=== PATIENT | male | born 1995 | race Hispanic/Latino ===

== ENCOUNTER 2017-05-07 23:20 | Observation (INO) | payer OTHER ==
[~2017-05-07 23:20] MED LIST: ISOVUE-370 76%-LOCM 1 ML ONE
[2017-05-07 23:51] LABS: #Basophils 0.1 thou/uL (0.0-0.2); #Eosinphils 0.1 thou/uL (0.0-0.7); #Lymphocytes 4.1 thou/uL (1.20-3.40); #Monocytes 1.1 thou/uL (0.11-0.59); #Neutrophils 12.8 thou/uL (1.40-6.50); %Basophils 0.3 % (0.0-1.0); %Eosinophils 0.5 % (0.0-10.0); %Lymphocytes 22.5 % (21.0-51.0); %Monocytes 6.2 % (0.0-10.0); Hematocrit 47.7 % (42.0-52.0); Mean Platelet Volume 7.2 fL (7.4-10.4); White Blood Cell (WBC) Count 18.2 thou/uL (4.8-10.8)
[2017-05-07] MEDS ORDERED: Ondansetron HCl/PF 4 MG/2 ML Vial ONE (23:57)
[2017-05-07] MEDS ORDERED: Morphine 4 MG/ML VIAL ONE (23:57)
[2017-05-08 00:09] LABS: ALT (SGPT) 66 U/L (8-55); AST (SGOT) 35 U/L (5-34); Alkaline Phosphatase 84 U/L (40-150); Anion Gap 13 mmol/L (10-20); BUN (Urea Nitrogen) 14 mg/dL (8.9-20.6); Calc. Creatinine Clearance 0 mL/min (70-130); Calcium 9.9 mg/dL (7.8-10.44); Carbon Dioxide 28 mmol/L (22-29); Chloride 101 mmol/L (98-107); Estimated GFR-MDRD Greater than 90; Globulin 3.5 g/dL (2.4-3.5); Lipase 13 U/L (8-78); Protein, Total 8.1 g/dL (6.0-8.3)
[2017-05-08] MEDS ORDERED: MEROPENEM 1 GM/50 ML 1 GM in Premix Bag 1 BAG IVPB SCH (00:30)
[2017-05-08] MEDS ORDERED: Morphine 4 MG/ML VIAL ONE (00:31)
[2017-05-08 00:38] LABS: Bilirubin Negative (Negative); Blood, Urine Negative (Negative); Glucose, Urine (Dipstick) Negative (Negative); Ketone, Urine Negative (Negative); Nitrite Negative (Negative); Protein, Urine (Dipstick) Negative (Neg-Trace); Urobilinogen 0.2 mg/dL (0.2-1.0)
[2017-05-08] MEDS ORDERED: Ondansetron ODT 4 MG TAB SL PRN (02:25)
[2017-05-08] MEDS ORDERED: Ondansetron HCl/PF 4 MG/2 ML Vial IVP PRN (02:25)
[2017-05-08] MEDS ORDERED: Acetaminophen 325 MG TAB PO PRN (02:25)
[2017-05-08] MEDS ORDERED: Morphine PF 1 MG/ML SYR IVP PRN (02:26)
[2017-05-08] MEDS ORDERED: Morphine 10 MG/ML CARPUJECT SLOW IVP PRN (02:27)
[2017-05-08] MEDS: Sodium Chloride 0.9% 1,000 ML IV SCH ×2 (03:30→06:29)
--- NOTE | 2017-05-08 06:52 | CT ---
ABDOMEN CT WITH CONTRAST PELVIC CT WITH CONTRAST: Date: 05/07/17 HISTORY: Right lower quadrant pain. Nausea. Evaluate for appendicitis. COMPARISON: None. TECHNIQUE: An abdomen and pelvic CT are performed with IV contrast. Coronal reformatted images are submitted for interpretation. FINDINGS: ABDOMEN CT: Lung bases are clear. Heart size is normal. No significant pericardial fluid. Descending thoracic aor ta and abdominal aorta have a normal caliber. No periaortic fat stranding. Intra and extrahepatic portal vein is patent. Unremarkable gallbladder. The liver, spleen, pancreas, and adrenal glands have appropriate enhancement. No gastrohepatic, retrocrural, or periportal lymphadenopathy. There are mildly enlarged right lower quadrant lymph nodes. [employer] enlarged lymph node measur es 13.0 mm in maximum dimension. No mesenteric mass, free air, or significant free fluid. Trace amount of fluid in the right paracolic gutter. Symmetric enhancement of the kidneys. Bilaterally, no obstructive uropathy. Limited evaluation of the alimentary canal due to lack of oral contrast. No evidence of bowel obstruc tion. Ileocecal junction is normal. Fecal material in a nondistended, nondilated colon. There is evid ence of diverticulosis, without evidence of diverticulitis. Emanating from the cecal apex is a blind- ending tubular structure with evidence of adjacent mesenteric fat stranding. Punctate hyperdensities compatible with appendicoliths are noted. This tubular structure measures approximately 1.0 cm. No ev idence of abscess or perforation. PELVIC CT: No mass, lymphadenopathy, free air, or free fluid. Urinary bladder is unremarkable. There are no lytic or blastic lesions in the osseous structures. IMPRESSION: Appendicitis without evidence of abscess or perforation. Results of study discussed with Dr. Chandra on 05/07/17 at 2358 hours. CODE CR. POS: [facility]
[2017-05-08] MEDS ORDERED: FLU VACC QS2017-18 36 mo. & older 0.5 ML SYRINGE IM ONE (09:00)
[2017-05-08] MEDS ORDERED: Sodium Chloride 0.9% 1,000 ML IV SCH (09:30)
--- NOTE | 2017-05-08 09:38 | HP ---
HISTORY OF PRESENT ILLNESS: Esteban Barajas Jr. is a 22-year-old male from [place]. 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 He at 8:00 p. m. last night, approximately 13 hours ago began experiencing right lower quadrant pain. He has not s uffered anorexia or nausea or vomiting, but pain is worse with movement. He was seen in the emergenc y room. CAT scan verifies findings of appendicitis. ALLERGIES: None. TOBACCO: One pack per week. ALCOHOL: Socially. MEDICATIONS: None. PAST SURGICAL AND MEDICAL HISTORY: Noncontributory. REVIEW OF SYSTEMS: Noncontributory. SOCIAL HISTORY: Patient is single, lives in [place]. PHYSICAL EXAMINATION: VITAL SIGNS: Temperature 98 degrees, 91, 128/59. HEENT: Unremarkable. LUNGS: Clear to auscultation. CARDIAC: Regular rate and rhythm without murmur or gallop. ABDOMEN: Soft, tenderness in his right lower quadrant with guarding and rebound. EXTREMITIES: Unremarkable. NEUROLOGIC: Intact. No lymphadenopathy. Weight 117 kilograms. He received meropenem many hours ago. He has IV fluids running. ASSESSMENT AND PLAN: Acute appendicitis. Recommend laparoscopic video appendectomy. Risk of infect ion, bleeding, visceral injury, open procedure, fistula etc. discussed. Questions answered. He cons ents. We will plan this today, probably as an outpatient and he can go home postoperatively today.
[2017-05-08] MEDS ORDERED: Midazolam HCl 2 mg/2 ml Vial ONE (11:56)
[2017-05-08] MEDS ORDERED: Piperacillin/Tazobactam 3.375 GM, Admixture Fee 1 EACH in Sodium Chloride 0.9% 100 ML IVPB SCH (12:00)
[2017-05-08] MEDS ORDERED: Ketorolac Tromethamine 30 MG/ML VIAL IVP SCH (12:00)
[2017-05-08] MEDS ORDERED: Acetaminophen 1,000 MG in Premix Bag 1 BAG IVPB SCH (12:00)
[2017-05-08] MEDS ORDERED: Fentanyl 100 MCG/2 ML VIAL ONE ×3 (13:05→14:59)
[2017-05-08] MEDS ORDERED: Bupivacaine/Epinephrine 0.25% 30 ML VIAL ONE (13:07)
[2017-05-08] MEDS ORDERED: Ibuprofen 600 MG TAB PO PRN (13:35)
[2017-05-08] MEDS ORDERED: Acetaminophen 500 MG TAB PO PRN (13:35)
[2017-05-08] MEDS ORDERED: traMADol HCl 50 MG TAB PO PRN ×2 (13:35)
--- NOTE | 2017-05-08 14:33 | OP ---
DATE OF PROCEDURE: 05/08/2017 PREOPERATIVE DIAGNOSIS: Acute appendicitis. POSTOPERATIVE DIAGNOSIS: Acute appendicitis. PROCEDURE: Laparoscopic video appendectomy. SURGEON: Dr. Eugenio Ramires. ANESTHESIA: General. Local 0.5% Marcaine with epinephrine, 30 mL, mixed with 2% Xylocaine, 10 mL DESCRIPTION OF PROCEDURE: Patient was taken to the operating room where under general anesthesia, Fo ayah placed at the beginning of the procedure and removed at the end. Abdomen was clipped of hair, pr epared with ChloraPrep, draped in routine fashion. Local anesthetic mixture infiltrated into skin an d subcutaneous tissue about each port site. Infraumbilical incision made and pneumoperitoneum to 15 mmHg obtained with the Veress needle, replacing it with a 5 port and laparoscope inserted. Suprapubi c incision made and a 12 port placed. Right lateral subcostal incision made and a 5 port placed. Me soappendix taken down with LigaSure. The stump of the appendix divided with cecal stump with the end ovascular YINA blue load stapler. Appendix removed through the 12 port and submitted to Pathology. G ood hemostasis ensured with clips and cautery and LigaSure. Irrigant and pneumoperitoneum evacuated after suprapubic fascia approximated with 0 Vicryl suture with GraNee needle. All skin incisions nadja roximated with interrupted subdermal 4-0 Monocryl and DermaGlue applied.
[2017-05-08] MEDS ORDERED: Promethazine HCl 25 MG/ML VIAL ONE (15:01)
[2017-05-08] MEDS ORDERED: Glycopyrrolate 0.2 MG/ML 5 ML SYRINGE ONE (16:17)
[2017-05-08] MEDS ORDERED: Propofol 200 MG/20 ML VIAL ONE (16:17)
[2017-05-08] MEDS ORDERED: Succinylcholine Chloride 20 MG/ML 10 ml SYRINGE FS ONE (16:17)
[2017-05-08] MEDS ORDERED: Lidocaine 1% PF 5 ML VIAL ONE (16:17)
[2017-05-08] MEDS ORDERED: Ondansetron HCl/PF 4 MG/2 ML Vial ONE (16:17)
--- NOTE | 2017-05-08 19:24 | DIS ---
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 CAT scan in the emergency room verified appendicit is consistent with physical exam and history. He received intravenous fluids and antibiotics overnig ht, was taken for laparoscopic video appendectomy, and postoperatively on the day of operation, disch arged home. He was instructed to take [id number] Tylenol 1000 mg p.o. 4 times a day p.r.n. liliana n and/or Motrin 600 mg p.o. 4 times a day p.r.n. pain, was given a prescription for Ultram 25 with on e refill. He is to follow up in my office in 1-2 weeks or sooner as needed. Diet and activity as to lerated. No restrictions.
[2017-05-08 20:35] VITALS: BP 114/56; TEMP 98.2
== END 2017-05-08 20:20 | disposition home or self-care (01) ==
LOC: ERS 23:20 → 3SE 05-08 00:24
PROVIDERS: ADMIT Specialist; ATTEND Specialist
PROC: 0DTJ4ZZ Resection of Appendix, Percutaneous Endoscopic Approach (ICD-10-PCS; principal; 2017-05-08)
DX: K35.80 Unspecified acute appendicitis (principal); F17.210 Nicotine dependence, cigarettes, uncomplicated
CPT/HCPCS: 36415; 74177; 80053; 81003; 83690; 85025; 86850; 86900; 86901; 88304; 96361; 96374; 96375; 96376; G0378; J0131; J1885; J2001; J2250; J2270; J2274; J2405; J2543; J2550; J2704; J3010; J7050